=== PATIENT | male | born 2000 | race Caucasian/White ===

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

== ENCOUNTER → 2021-09-14 | Outpatient (CLI) | payer BC ==
[~2021-09-14] MED LIST: PROAIR HFA8.5 GM INH
== END | disposition home or self-care (01) ==
LOC: COVID19 15:13
PROVIDERS: ATTEND Internal Medicine
DX: U07.1 COVID-19 (principal)